=== PATIENT | female | born 1945 | race Hispanic/Latino ===

== ENCOUNTER 2017-07-11 10:43 | Day surgery (SDC) | payer MEDICARE ==
--- NOTE | 2017-07-11 11:31 | Anesthesia Day of Surgery ---
Anesthesia Day of Surgery - Day of Surgery Patient Examined: Yes Patient H&P Reviewed: Yes Patient is NPO: Yes
--- NOTE | 2017-07-11 11:31 | Anesthesia Consultation ---
Anesthesia Consult and Med Hx Date of service: 07/11/17 - Airway Anesthetic Teeth Evaluation: Caps ROM Head & Neck: Adequate Mental/Hyoid Distance: Adequate Mallampati Class: Class II Intubation Access Assessment: Probably Good - Pulmonary Exam CTA: Yes - Cardiac Exam Cardiac Exam: RRR - Pre-Operative Health Status ASA Pre-Surgery Classification: ASA2 Proposed Anesthetic Plan: General - Gastrointestinal Hx Gastroesophageal Reflux Disease: Yes (severe) - Additional Comments Anesthesia Medical History Comments: Informed consent obtained
[2017-07-11] MEDS ORDERED: NACL 0.9% 1000 ML 1,000 ML IV SCH (12:00)
[2017-07-11] MEDS ORDERED: PEPCID IV NR (12:00)
[2017-07-11] MEDS ORDERED: NACL BACTERIOSTATIC INFILTRATI ONE (12:06)
[2017-07-11] MEDS ORDERED: MARCAINE 0.25% INFILTRATI ONE ×2 (12:29→14:00)
[2017-07-11] MEDS ORDERED: HEPARIN SUB-Q NR (12:30)
[2017-07-11] MEDS ORDERED: DIPRIVAN 10 MG/ML IV ONE (12:40)
[2017-07-11] MEDS ORDERED: DILAUDID ONE (12:40)
[2017-07-11] MEDS ORDERED: ANCEF/STERILE WATER 2 GM/20 ML IV NR (13:00)
[2017-07-11] MEDS ORDERED: NEO SYNEPHRINE/NS Syringe(OR USE) IV ONE (13:11)
[2017-07-11] MEDS ORDERED: NACL 0.9% IR ONE (14:00)
--- NOTE | 2017-07-11 14:32 | Post Operative Note ---
Pre-op diagnosis: Chronic cholecystitis Post-op diagnosis: same Procedure: Lap kitty Anesthesia: GETA Surgeon: UMBERTO MERRITT Estimated blood loss: minimal Pathology: list (gallbladder) Specimen disposition: to lab Condition: stable Disposition: PACU
[2017-07-11] MEDS ORDERED: ROBINUL ONE (14:35)
[2017-07-11] MEDS ORDERED: NEOSTIGMINE ONE (14:35)
[2017-07-11] MEDS: DILAUDID IV PRN ×2 (14:56→15:12)
[2017-07-11] MEDS ORDERED: PERCOCET 5/325 PO ONE (16:00)
[2017-07-11] MEDS ORDERED: ZOFRAN IV ONE (16:48)
[2017-07-11] MEDS ORDERED: TRANSDERM-SCOP TD ONE (16:48)
[2017-07-11 17:08] VITALS: BP 159/78
[2017-07-12] MEDS ORDERED: XYLOCAINE MPF 2% ONE (14:30)
[2017-07-12] MEDS ORDERED: ZEMURON IV ONE (14:30)
--- NOTE | 2017-07-15 09:16 | Operative Report ---
Operative Report Operative Report: Date of operation: 07/11/2017 Preoperative diagnosis: Chronic cholecystitis Postoperative diagnosis: Same Operation: Laparoscopic cholecystectomy Surgeon: Surendra Mccoy M.D. Anesthesia: GETA EBL: Minimal There were no complications, drains or cultures. Specimens consisted of gallbladder and gallstones. Description of procedure: Patient was placed supine on the operating room table. After adequate GETA was obtained, her abdomen was prepped and draped. Proposed trocar incisions were anesthetized with 8 mL of 0.5% Marcaine. A small infraumbilical incision was made. Linea alba was incised and the peritoneal cavity carefully entered. A 10 mm Beltran port was inserted into the peritoneal cavity and pneumoperitoneum established. One 10 mm subxiphoid and two 5 mm right upper quadrant and right lateral abdominal Surgiports were then inserted into the peritoneal cavity under direct vision without incident. Patient was placed in a reverse Trendelenburg position with her right side rotated upward. The fundus of the gallbladder was grasped and was retracted cephalad and laterally. The cystic artery and duct were skeletonized and the critical view of safety was obtained. The cystic artery was doubly clipped and divided. The cystic duct was milked towards the gallbladder, doubly clipped and divided. The gallbladder was dissected off of the gallbladder fossa with the Bovie. Gallbladder was then placed in an endobag and the endobag and gallbladder removed via the periumbilical fascial defect. The Pretty port was re-inserted and pneumoperitoneum was re-established. Irrigation fluid using during the procedure was aspirated. The upper abdominal ports were removed and there was no bleeding from the port entry sites under low pressure. The infraumbilical port was removed and the fascial defect closed with 2 sutures of 0-Vicryl. Skin incisions were closed with running subcuticular sutures of 4-0 Monocryl. Sterile 2 X 2's followed by Tegaderm were applied to the incisions. Pt was extubated in the OR. She tolerated the procedure well and was taken to PACU in stable condition.
== END 2017-07-11 17:45 | disposition home or self-care (01) ==
LOC: OR 10:43
PROVIDERS: ATTEND Surgery
DX: K80.10 Calculus of gallbladder with chronic cholecystitis without obstruction (principal); K21.9 Gastro-esophageal reflux disease without esophagitis; F41.9 Anxiety disorder, unspecified; Z86.718 Personal history of other venous thrombosis and embolism; Z79.01 Long term (current) use of anticoagulants
CPT/HCPCS: 47562; 88304; J0690; J1170; J1644; J2370; J2405; J2704; J2710; J7030